=== PATIENT | female | born 1970 | race Caucasian/White ===

== ENCOUNTER 2019-12-15 11:47 | Outpatient (CLI) | payer OTHER, SELFPAY ==
--- NOTE | 2019-12-15 | ECG_ITS ---
Measurements Intervals [place] Rate: 88 P: 46 FL: 176 QRS: 46 QRSD: 87 T: 48 QT: 372 QTc: 451 Interpretive Statements SINUS RHYTHM WITH SINUS ARRHYTHMIA BORDERLINE ST ABNORMALITY- INFERIOR LEADS BASELINE ARTIFACT- II, III, V2 BORDERLINE ECG Electronically Signed On 12-15-2019 14:21:48 CDT by Michael Zepeda D.O.
== END 2019-12-15 11:48 | disposition home or self-care (01) ==
LOC: ANHCARD 11:59
PROVIDERS: PCP Internal Medicine
DX: Q66.42 Congenital talipes calcaneovalgus, left foot (principal)
CPT/HCPCS: 93005

== ENCOUNTER 2020-02-19 13:45 | Outpatient (CLI) | payer OTHER, SELFPAY ==
--- NOTE | ~2020-02-19 | MM_ITS ---
EXAMINATION: MM screening raquel BI w raj HISTORY: Screening mammogram, family history of breast cancer in her mother. TECHNIQUE: Craniocaudal and mediolateral oblique 3-D tomosynthesis images were obtained and synthetic 2-D images were generated. CAD analysis was submitted and interpreted. COMPARISON: 02/15/2018, 09/21/2016, 02/03/2015 BREAST PARENCHYMAL COMPOSITION: The breasts are almost entirely fatty. FINDINGS: There is no evidence of suspicious mass, calcification, or architectural distortion to sugg est malignancy in either breast. There has been no suspicious interval change. IMPRESSION: 1. No mammographic evidence of malignancy. 2. Recommend routine screening mammography in one year. BI-RADS Category 1: Negative Reviewed, dictated and finalized at location A. CODER
== END 2020-02-19 13:46 | disposition home or self-care (01) ==
LOC: ANHIMG 13:47
PROVIDERS: PCP Internal Medicine; Visit Provider Internal Medicine
DX: Z12.31 Encounter for screening mammogram for malignant neoplasm of breast (principal)
CPT/HCPCS: 77063; 77067

== ENCOUNTER 2020-10-14 13:58 | Outpatient (RCR) | payer OTHER, SELFPAY | END 2020-10-14 13:59 | disposition home or self-care (01) | LOC: ANHDMC 13:58 | PROVIDERS: PCP Internal Medicine; Visit Provider Internal Medicine | DX: E11.9 Type 2 diabetes mellitus without complications (principal) | CPT/HCPCS: 99199 ==

== ENCOUNTER 2020-10-14 14:00 | Outpatient (RCR) | payer OTHER, SELFPAY | END 2020-10-14 14:02 | disposition home or self-care (01) | LOC: ANHDMC 14:00 | PROVIDERS: PCP Internal Medicine; Visit Provider Internal Medicine | DX: E11.9 Type 2 diabetes mellitus without complications (principal) | CPT/HCPCS: 99199 ==

== ENCOUNTER 2020-12-11 11:00 | Outpatient (RCR) | payer OTHER, SELFPAY ==
[2020-12-11 11:09] VITALS: BMI 31.4
[2020-12-11 11:15] VITALS: BMI 31.4
== END 2021-02-17 15:37 | disposition home or self-care (01) ==
LOC: ANHDMC 11:00
PROVIDERS: PCP Internal Medicine; Visit Provider Internal Medicine
DX: E11.9 Type 2 diabetes mellitus without complications (principal); Z71.89 Other specified counseling; Z71.3 Dietary counseling and surveillance
CPT/HCPCS: 97802; G0108

== ENCOUNTER 2021-03-18 15:16 | Outpatient (CLI) | payer OTHER, SELFPAY ==
--- NOTE | ~2021-03-18 | MM_ITS ---
EXAMINATION: MM screening raquel BI w raj HISTORY: Screening mammogram TECHNIQUE: Craniocaudal and mediolateral oblique 3-D tomosynthesis images were obtained and synthetic 2-D images were generated. CAD analysis was submitted and interpreted. COMPARISON: 02/19/2020, 02/15/2018, 09/02/2016 bilateral screening mammogram examinations BREAST PARENCHYMAL COMPOSITION: There are scattered areas of fibroglandular density. FINDINGS: There is a biopsy marker on the left; history of prior benign left breast biopsy. There is an approximately 4 millimeter suspicious irregular soft tissue mass with granular microcalci fications in the inner mid left breast. Diagnostic left mammogram and left breast ultrasound examinat ion are recommended. Otherwise there is no evidence of suspicious mass, calcification, or architectural distortion to sugg est malignancy in either breast. There has been no other suspicious interval change. IMPRESSION: 1. No mammographic evidence of malignancy. 2. Recommend routine screening mammography in one year. BI-RADS Category 0: Incomplete: Needs additional imaging evaluation. Reviewed, dictated and finalized at location A. MANAGER
== END 2021-03-18 15:17 | disposition home or self-care (01) ==
LOC: ANHIMG 15:20
PROVIDERS: PCP Internal Medicine; Visit Provider Obstetrics & Gynecology
DX: Z12.31 Encounter for screening mammogram for malignant neoplasm of breast (principal); R92.8 Other abnormal and inconclusive findings on diagnostic imaging of breast
CPT/HCPCS: 77063; 77067

== ENCOUNTER 2021-03-30 13:30 | Outpatient (CLI) | payer OTHER, SELFPAY ==
--- NOTE | ~2021-03-30 | MMUS_ITS ---
EXAMINATION: MM diagnostic mammo unilat LT, US breast LT limited HISTORY: Follow-up left breast mass with calcifications TECHNIQUE: Additional 3-D tomosynthesis images of the left breast were performed and synthetic 2-D im ages were generated. CAD analysis was submitted and interpreted. High resolution Limited left breast ultrasound was performed. COMPARISON: 03/18/2021 BREAST PARENCHYMAL COMPOSITION: Breast composed of scattered areas of fibroglandular density FINDINGS: MAMMOGRAPHIC FINDINGS: There is poorly circumscribed mass measuring 4 mm in the upper inner quadrant of the left breast whic h contains amorphous calcifications. ULTRASOUND: Limited left breast ultrasound: Normal heterogeneous echotexture without focal solid or cystic mass. IMPRESSION: 1. Irregular shaped 4 mm left breast mass in the upper inner quadrant containing amorphous calcificat ions. No sonographic correlate. 2. Stereotactic left breast biopsy recommended. BI-RADS category 4, suspicious findings. Reviewed, dictated and finalized at location A. FOLIO LEAD IMPRESSION: 1. Irregular shaped 4 mm left breast mass in the upper inner quadrant containin g amorphous calcifications. No sonographic correlate. 2. Stereotactic left breast biopsy recommended. BI-RADS category 4, suspicious findings.
== END 2021-03-30 13:31 | disposition home or self-care (01) ==
LOC: ANHIMG 13:31
PROVIDERS: PCP Internal Medicine; Visit Provider Internal Medicine
DX: R92.8 Other abnormal and inconclusive findings on diagnostic imaging of breast (principal)
CPT/HCPCS: 76642; 77065

== ENCOUNTER 2021-04-02 10:30 | Outpatient (CLI) | payer OTHER, SELFPAY ==
--- NOTE | ~2021-04-02 | MM_ITS ---
MM stereotactic bx LT, MM post biopsy diagnostic LT, MM stereotactic specimen LT EXAMINATION: US GUID ED NEEDLE BIOPSY WITH VACUUM ASSISTANCE DATE: 04/02/2021 12:10 [employer]ETLANDS CONSERVATION LABORER INDICATION: Left breast mass with calcifications demonstrated on prior examination. Ultrasound-guide d core biopsy is requested to evaluate for malignancy. TECHNIQUE AND FINDINGS: The risks and potential benefits of the procedure were discussed with the patient, and written inform ed consent was obtained. After sterile preparation of the left breast, 1% lidocaine was utilized for local anesthesia. 1% lidocaine with epinephrine was used for deep anesthesia. A 10G vacuum-assisted biopsy gun needle was advanced through to the outer edge of the region of inter est from a superior medial approach utilizing sonographic guidance. A total of 6 tissue core samples were obtained through the lesion. An Inrad tissue marker clip was then placed at the biopsy site. H emostasis was achieved. The patient tolerated procedure well and there was no evidence of immediate complication. The patien t was given verbal instructions partly is from the department. Left breast mammograms to document ti ssue marker clip placement. The tissue samples were submitted to surgical pathology for histologic an alysis. IMPRESSION: 1. Successful ultrasound-guided vacuum-assisted biopsy of left breast mass with tissue marker placem ent. Please refer to pathology report for histologic analysis. Reviewed, dictated and finalized at location A. ANDS CONSERVATION LABORER IMPRESSION: 1. Successful ultrasound-guided vacuum-assisted biopsy of left breast mass wit h tissue marker placement. Please refer to pathology report for histologic anal ysis. IMPRESSION: 1. Successful ultrasound-guided vacuum-assisted biopsy of left breast mass wit h tissue marker placement. Please refer to pathology report for histologic anal ysis.
== END 2021-04-02 10:31 | disposition home or self-care (01) ==
PROVIDERS: PCP Internal Medicine; Visit Provider Internal Medicine
DX: R92.1 Mammographic calcification found on diagnostic imaging of breast (principal); N63.22 Unspecified lump in the left breast, upper inner quadrant
CPT/HCPCS: 19081; 77065; 88305; A4648

== ENCOUNTER → 2022-03-04 09:40 | Outpatient (CLI) | payer OTHER, SELFPAY ==
--- NOTE | ~2022-03-04 | US_ITS ---
US abdomen limited INDICATION: Generalized abdominal pain PROCEDURE: Realtime right upper abdominal ultrasound. COMPARISON: No prior studies for comparison. FINDINGS: The pancreas is normal without focal mass or pancreatic ductal dilation. Liver echotexture is increased, consistent with fatty infiltration. There is normal directional flow in the portal ve in. There are gallstones. Common bile duct measures 4 mm. No sonographic Melendez's sign. IMPRESSION: 1: Cholelithiasis. 2: Hepatic steatosis. Reviewed, dictated and finalized at location A. NISTRATIVE AIDE
== END ==
PROVIDERS: PCP Internal Medicine; Visit Provider Internal Medicine
DX: K80.20 Calculus of gallbladder without cholecystitis without obstruction (principal); K76.0 Fatty (change of) liver, not elsewhere classified
CPT/HCPCS: 76705

== ENCOUNTER 2022-04-02 13:37 | Outpatient (CLI) | payer OTHER, SELFPAY ==
--- NOTE | 2022-04-02 | ECHO_ITS ---
Patient Info Name: Ly Anna Age: 51 years : 1970 Gender: Female Ht: 67 in Wt: 182 lbs BSA: 2.00 m2 HR: 84 bpm BP: 109 / 84 mmHg Technical Quality: Good Exam Date: 04/02/2022 1:47 PM Exam Location: [facility] Patient Status: Outpatient Admit Date: 04/02/2022 Staff Ordering Physician: UNKNOWN, DOCTOR Trousseau Consultant: Anne Willoughby RDCS Attending Provider: UNKNOWN, DOCTOR Exam Type: CA echo doppler color flow Study Info Indications R07.9 - Chest pain, unspecified Complete two-dimensional, color flow and Doppler transthoracic echocardiogram is performed. Summary 1. Complete two-dimensional, color flow and Doppler transthoracic echocardiogram is performed. 2. Subcostal images not performed due to recent cholecystectomy. 3. Left ventricular chamber dimension is normal. 4. Ventricular septum is sigmoid shaped. No LVOT obstruction. 5. Left ventricular systolic function is normal, estimated at 60-65%. 6. The left ventricular diastolic function is grade I diastolic dysfunction. 7. E/e' 9 is minimally elevated. 8. Global longitudinal strain is abnormal at -12.5%. Left Ventricle E/e' 9 is minimally elevated. Global longitudinal strain is abnormal at -12.5%. Subcostal images not performed due to recent cholecystectomy. Ventricular septum is sigmoid shaped. No LVOT obstruction. Left ventricular chamber dimension is normal. Left ventricular systolic function is normal, estimated at 60-65%. The left ventricular diastolic function is grade I diastolic dysfunction. Right Ventricle Right ventricular chamber dimension is normal. Right ventricular systolic function is normal. Left Atria Left atrial chamber dimension is normal. Right Atria Right atrial chamber dimension is normal. Aortic Valve The aortic valve is trileaflet. There is no aortic valve stenosis. There is no aortic valve regurgitation. Pulmonic Valve There is no pulmonic regurgitation. Mitral Valve There is no mitral valve stenosis. There is no mitral valve regurgitation. Tricuspid Valve There is no tricuspid valve regurgitation. Pericardium/Pleural There is no pericardial effusion. Inferior Vena Cava Inferior vena cava is not well visualized. Aorta The aortic root size at the sinus of Valsalva is normal. Left Ventricular Outflow Tract Name Value Normal LVOT 2D LVOT Diameter 1.9 cm LVOT Doppler LVOT Peak Gradient 4 mmHg LVOT Mean Gradient 2 mmHg LVOT VTI 17 cm LVOT VTI/AV VTI Ratio 0.9 LVOT Stroke Volume 46 ml LVOT CO 3.9 l/min LVOT CI 1.9 l/min/m2 Pulmonic Valve Name Value Normal RVOT Doppler RVOT Peak Gradient 2 mmHg
== END 2022-04-02 13:38 | disposition home or self-care (01) ==
LOC: ANHCARD 13:39
PROVIDERS: PCP Internal Medicine
DX: R07.9 Chest pain, unspecified (principal)
CPT/HCPCS: 93306

== ENCOUNTER 2022-05-27 14:39 | Outpatient (CLI) | payer OTHER, SELFPAY ==
--- NOTE | ~2022-05-27 | MM_ITS ---
EXAMINATION: MM screening raquel BI w raj HISTORY: Screening mammogram TECHNIQUE: Craniocaudal and mediolateral oblique 3-D tomosynthesis images were obtained and synthetic 2-D images were generated. CAD analysis was submitted and interpreted. COMPARISON: 03/30/2021 diagnostic left mammogram and limited left breast ultrasound examination BREAST PARENCHYMAL COMPOSITION: There are scattered areas of fibroglandular density. FINDINGS: There are 2 biopsy markers on the left; history of 2 prior benign left breast biopsies. The re is no evidence of suspicious mass, calcification, or architectural distortion to suggest malignanc y in either breast. There has been no suspicious interval change. IMPRESSION: 1. No mammographic evidence of malignancy. 2. Recommend routine screening mammography in one year. BI-RADS Category 1: Negative Reviewed, dictated and finalized at location A. TENANCE PORTER
== END 2022-05-27 14:40 | disposition home or self-care (01) ==
LOC: ANHIMG 14:40
PROVIDERS: PCP Internal Medicine; Visit Provider Internal Medicine
DX: Z12.31 Encounter for screening mammogram for malignant neoplasm of breast (principal)
CPT/HCPCS: 77063; 77067

== ENCOUNTER 2022-10-01 12:07 | Outpatient (CLI) | payer OTHER, SELFPAY ==
--- NOTE | ~2022-10-01 | XR_ITS ---
EXAM: XR lumbar spine 2-3V DATE: 10/01/2022 12:34 HISTORY: chronic Low back pain . COMPARISON: None available. FINDINGS: Moderate lumbar scoliosis. 5 nonrib-bearing lumbar-type vertebral bodies. Pedicles intact. Normal vertebral body alignment. Vertebral body heights preserved. Mild disc space narrowing at L2-3 through L4-5. Facet sclerosis and hypertrophy, mild at L4-5 and moderate at L5-S1. No fracture or dis location. Mild bilateral hip osteoarthritis. IMPRESSION: Lumbar scoliosis. Mild multilevel degenerative disc disease. Mild lower lumbar facet arth ropathy. Reviewed, dictated and finalized at location K. IMPRESSION: Lumbar scoliosis. Mild multilevel degenerative disc disease. Mild l ower lumbar facet arthropathy.
--- NOTE | ~2022-10-01 | XR_ITS ---
EXAM: XR hip RT min 2V DATE: 10/01/2022 12:34 HISTORY: RIGHT HIP PAIN . COMPARISON: None available. FINDINGS: Normal mineralization. No fracture or dislocation. No lytic or blastic lesion. Mild degene rative change at the right hip joint. No erosion or periosteal change. Soft tissues within normal may its. IMPRESSION: Mild right hip osteoarthritis. Reviewed, dictated and finalized at location K.
== END 2022-10-01 12:08 ==
PROVIDERS: PCP Chiropractor; Visit Provider Chiropractor
DX: M16.11 Unilateral primary osteoarthritis, right hip (principal); M41.86 Other forms of scoliosis, lumbar region; M51.36 Other intervertebral disc degeneration, lumbar region
CPT/HCPCS: 72100; 73502

== ENCOUNTER → 2023-03-02 10:43 | Outpatient (CLI) | payer OTHER, SELFPAY ==
--- NOTE | ~2023-03-02 | XR_ITS ---
Right ankle Technique: AP, oblique, and lateral views were obtained. Clinical History: Pain Findings: No acute fracture or dislocation is seen. Patient is status post orthopedic surgery at the distal tibiofibular syndesmosis region. There are also 2 orthopedic screws within the calcaneus. Osse ous alignment is anatomic. Ankle mortise and other visualized joint spaces are preserved. Soft tissu es are otherwise unremarkable. Impression: No acute abnormality. Postoperative changes at the distal tibiofibular syndesmosis and calcaneus. Reviewed, dictated and finalized at location M. MIGRATION CONSULTANT Impression: No acute abnormality. Postoperative changes at the distal tibiofibular syndesmosis and calcaneus.
--- NOTE | ~2023-03-02 | XR_ITS ---
Lumbosacral Spine: AP and lateral views Clinical History: Pain Findings: There is levoscoliosis of the lumbar spine, essentially unchanged. No fracture or subluxati on seen otherwise. The intervertebral disc spaces are preserved. There is moderate facet arthropathy from L4 through S1. The sacroiliac joints are normally outlined. Impression: Levoscoliosis and lower lumbar spine facet arthropathy, as detailed above. Reviewed, dictated and finalized at location M. BALL WINDER Impression: Levoscoliosis and lower lumbar spine facet arthropathy, as detailed above.
--- NOTE | ~2023-03-02 | XR_ITS ---
Left ankle Technique: AP, oblique, and lateral views were obtained. Clinical History: Pain Findings: No acute fracture or dislocation is seen. Osseous alignment is anatomic. Ankle mortise and other visualized joint spaces are preserved. Soft tissues are otherwise unremarkable. Impression: Unremarkable left ankle. Reviewed, dictated and finalized at location . IAGE FEEDER Impression: Unremarkable left ankle.
--- NOTE | ~2023-03-02 | XR_ITS ---
EXAM: XR tibia fibula RT 2V DATE: 03/02/2023 14:23 HISTORY: PAIN . COMPARISON: None available. FINDINGS: Normal mineralization. Surgical fixation of the syndesmosis. Select joint are maintained d egenerative changes in the right knee and right ankle. Partially visualized cannulated screws in the calcaneus. Healed posterior malleolar fracture. No acute fracture or dislocation. No lytic or blastic lesion. Joint spaces are maintained. No erosion or periosteal change. Soft tissues within normal may its. IMPRESSION: No acute osseous finding in the right tibia/fibula. Reviewed, dictated and finalized at location K. PAINTER
--- NOTE | ~2023-03-02 | XR_ITS ---
Right foot Technique: AP, oblique, and lateral views were obtained. Clinical History: Pain Findings: No acute fracture or dislocation is seen. 2 orthopedic screws are present in the calcaneus. Osseous alignment is anatomic. Joint spaces are preserved without erosive or degenerative change. So ft tissues are unremarkable. Impression: No acute abnormality. 2 orthopedic screws in the calcaneus. Reviewed, dictated and finalized at location . AULICS TEACHER Impression: No acute abnormality. 2 orthopedic screws in the calcaneus.
--- NOTE | ~2023-03-02 | XR_ITS ---
EXAM: XR femur RT min 2V DATE: 03/02/2023 14:23 HISTORY: PAIN . COMPARISON: None available. FINDINGS: Normal mineralization. No fracture or dislocation. No lytic or blastic lesion. Mild degene rative changes in the right hip and right knee. No erosion or periosteal change. Soft tissues within normal limits. IMPRESSION: Unremarkable right femur radiograph findings. Reviewed, dictated and finalized at location K. SION SCIENCE ANALYST
--- NOTE | ~2023-03-02 | XR_ITS ---
Left foot Technique: AP, oblique, and lateral views were obtained. Clinical History: Pain Findings: No acute fracture or dislocation is seen. Osseous alignment is anatomic. Joint spaces are p reserved without erosive or degenerative change. Soft tissues are unremarkable. Impression: Unremarkable left foot radiographs. Reviewed, dictated and finalized at location . WOMEN SERVICES Impression: Unremarkable left foot radiographs.
--- NOTE | ~2023-03-02 | XR_ITS ---
Thoracic spine: Clinical Indication: Back pain AP and lateral views were performed. No fracture is seen. There is normal alignment of the vertebrae. The intervertebral disc spaces appe ar normal. Paravertebral soft tissues appear normal. Impression: No significant abnormalities noted. Reviewed, dictated and finalized at [facility]. MENT REVIEW SPECIALIST Impression: No significant abnormalities noted.
== END ==
PROVIDERS: PCP Internal Medicine; Visit Provider Pain Medicine Interventional Pain Medicine
DX: M47.25 Other spondylosis with radiculopathy, thoracolumbar region (principal); M47.26 Other spondylosis with radiculopathy, lumbar region; M47.27 Other spondylosis with radiculopathy, lumbosacral region; M47.24 Other spondylosis with radiculopathy, thoracic region; M79.673 Pain in unspecified foot
CPT/HCPCS: 72072; 72100; 73552; 73590; 73610; 73630

== ENCOUNTER 2024-02-16 14:07 | Outpatient (CLI) | payer MEDICARE, SELFPAY ==
--- NOTE | ~2024-02-16 | MM_ITS ---
EXAMINATION: MM screening raquel BI w raj HISTORY: Screening mammogram, family history of breast cancer in her mother. TECHNIQUE: Craniocaudal and mediolateral oblique 3-D tomosynthesis images were obtained and synthetic 2-D images were generated. CAD analysis was submitted and interpreted. COMPARISON: 05/27/2022, 03/18/2021, 02/19/2020 BREAST PARENCHYMAL COMPOSITION:Not Dense. The breasts are almost entirely fatty FINDINGS: No suspicious mass, calcification, or architectural distortion are identified in either mario ast to suggest malignancy. There has been no suspicious interval change. IMPRESSION: No mammographic evidence of malignancy. Recommend routine screening mammography in one year. BI-RADS Category 1: Negative Reviewed, dictated and finalized at location . LINES MANAGER
== END 2024-02-16 14:08 | disposition home or self-care (01) ==
PROVIDERS: PCP Internal Medicine; Visit Provider Internal Medicine
DX: Z12.31 Encounter for screening mammogram for malignant neoplasm of breast (principal)
CPT/HCPCS: 77063; 77067

== ENCOUNTER 2024-07-18 00:14 | Day surgery (SDC) | payer MEDICARE, SELFPAY ==
[2024-07-09 14:27] VITALS: BMI 31.6
--- OUTSIDE RECORDS SUMMARY | 2024-07-18 00:17 | XMS_ITS | Clinical Summary ---
Author Organization [facility] Address [address] [place] [place] [address] Care Team Providers Care Meat Press Operator Name Role Phone Unavailable Primary Care Provider Unavailabl e Source Comments [facility],non-owned Affiliates and Associated Physician Practices is amultiple site organization consisting of ambulatory clinics and hospital sitesin [place], [place], [place] and [place]. This disclosure is being madepursuant to the Care Everywhere program and may not contain all information available regarding this patient. Last updated 17.[facility] Allergies Active Allergy Reactions Criticality Noted Date Comments Hydromorphone Nausea and/or Vomiting 02/05/2021 Medications * Be aware that medications may not be up to date on this document. Alwaysverify current medications with the patient. lisinopril (PRINIVIL; ZESTRIL) 10 MG tablet Take 1 (one) tablet by mouth once daily Active Loratadine-Pse udoephedrine (PX ALLERGY RELIEF D, LORATID, PO) Active Methylcobalami n (A28-VRIINQ PO) Active escitalopram (LEXAPRO) 20 MG tablet Take 1 (one) tablet by mouth once daily Active omeprazole (PRILOSEC) 20 MG capsule Take 1 (one) capsule by mouth daily before breakfast Active metFORMIN (GLUCOPHAGE) 500 MG tablet Take 2 (two) tablets by mouth once daily Active atorvastatin (LIPITOR) 10 MG tablet Take 1 (one) tablet by mouth at bedtime Active ALBUTEROL SULFATE HFA IN Activ e semaglutide (OZEMPIC, 0.25 OR 0.5 MG/DOSE,) 2 MG/1.5ML pen Inject subcutaneously every 7 days Active meloxicam (MOBIC) 15 MG tablet Take 15 mg by mouth once daily Active nortriptyline (PAMELOR) 10 MG capsule Take 1 (one) capsule by mouth at bedtime Active oxyCODONE-acet aminophen (PERCOCET) 5-325 MG tablet Take 1 (one) tablet by mouth every 6 hours as needed for Pain 28 tablet Active Additional Information Patient not taking.Reported on 07/28/2022 ondansetron, disintegrating , (ZOFRAN ODT) 4 MG tablet Take 1 (one) tablet by mouth every 6 hours as needed for Nausea/Vomiting Allow tablet to dissolve on the tongue 30 tablet Active Additional Information Patient not taking.Reported on 07/28/2022 buPROPion XL 24hr (Wellbutrin-XL ) 150 MG tablet Take 1 (one) tablet by mouth once daily Active traMADol (Ultram) 50 MG tablet Take 1 (one) tablet by mouth every 6 hours as needed for Pain Active Active Problems Problem Noted Date Diagnosed Date Right foot pain 07/29/2022 Social History Tobacco Use Types Packs/Day Years Used Date Smoking Tobacco: Never Smokeless Tobacco: Never Alcohol Use Standard Drinks/Week Comments Yes 0 (1 standard drink = 0.6 oz pur e alcohol) occasionally Comments No Sex and Gender Information Value Date Recorded Sex Assigned at Female 02/08/2021 7:28 PM LONG DISTANCE BILLING OPERATOR Legal Sex Female 2:50 PM CDT Gender Identity Female 02/08/2021 7:28 PM LONG DISTANCE BILLING OPERATOR Sexual Orientation Straight 02/08/2021 7: 28 PM LONG DISTANCE BILLING OPERATOR Last Filed Vital Signs Vital Sign Reading Time Taken Comments Blood Pressure 118/96 07/29/2022 1:50 PM CDT Pulse 65 07/29/2022 1:50 PM CDT Temperature 36.6 C (97.8 F) 07/29/2022 1:15 PM CDT Respiratory Rate 15 07/29/2022 1:50 PM CDT Oxygen Saturation 97% 07/29/2022 1:50 PM CDT Inhaled Oxygen Concentration - - Weight 85.3 kg (188 lb) 07/29/2022 8:00 AM CDT Height 170.2 cm (5' 7 ) 07/29/2022 8:00 AM CDT Body Mass Index 29.44 07/29/2022 8:00 AM CDT Plan of Treatment Health Maintenance Due Date Last Done Comments COLON MONITORING 1970 COLONOSCOPY - COLON CA SCREENING 1970 CT COLONOGRAPHY - COLON CA SCREENING 1970 FIT - COLON CA SCREENING 1970 FLEX SIG - COLON CA SCREENING 1970 MAMMOGRAM 1970 PAP SMEAR 1970 HIV SCREENING 1984 HEPATITIS C SCREENING 06/07/1987 DTAP/TDAP/TD VACCINES (1 - Tdap) 1988 HEPATITIS B VACCINE (1 of 3 - 19+ 3-dose series) 1988 PNEUMOCOCCAL VACCINE 50+ (1 of 1 - PCV) 06/12/2019 ZOSTER VACCINE (1 of 2) 06/12/2019 COLOGUARD (AGES 45-75) - COL ON CA SCREENING 03/25/2023 03/25/2020 Colorectal Cancer Screening 03/25/2023 COVID-19 VACCINE (1 - 2023-2 5 season) 2023 DEPRESSION SCREENING 04/04/2024 INFLUENZA VACCINE (Season Ended) 2024 02/06/20 20 HIB VACCINE Aged Out No longer eligi ble based on patient's age to complete this topic HPV VACCINE Aged Out No longer eligi ble based on patient's age to complete this topic MENINGOCOCCAL (Group B) VACC INE SHARED DECISION-MAKING Aged Out No longer eligibl e based on patient's age to complete this topic MENINGOCOCCAL GROUPS A/C/Y/W VACCINE Aged Out No longer eligible b ased on patient's age to complete this topic PNEUMOCOCCAL VACCINE Aged Out No long er eligible based on patient's age to complete this topic Medical Devices Explanted Type Area Fleet Dispatch Manager Device Identifier Shelf Expiration Date Model / Serial / Lot Screw 2.4mm 12mm T8 Ft Kathryn Slf-Tap Implanted:Qty: 1 on 02/05/2021 by Valeriy Gracia DPM at [facility] [place] Explanted:Qty: 1 on 07/29/2022 by Valeriy Gracia DPM at [facility] Right: Foot [employer] AR-8724-12 / / Screw 2.4mm 12mm Slf-Tap Lck Va Ti Acpt Implanted:Qty: 1 on 02/05/2021 by Valeriy Gracia DPM at [facility] [place] Explanted:Qty: 1 on 07/29/2022 by Valeriy Gracia DPM at [facility] [place] Right: Foot [employer] AR-8724V-12 / / Screw 2.4mm 12mm Slf-Tap Lck Va Ti Acpt Implanted:Qty: 2 on 02/05/2021 by Valeriy Gracia DPM at [facility] [place] Explanted:Qty: 2 on 07/29/2022 by Valeriy Gracia DPM at [facility] [place] Right: Foot [employer] AR-8724V-12 / / Screw 2.4mm 16mm Slf-Tap Lck Va Sld Implanted:Qty: 1 on 02/05/2021 by Valeriy Gracia DPM at [facility] [place] Explanted:Qty: 1 on 07/29/2022 by Valeriy Gracia DPM at [facility] [place] Right: Foot [employer] AR-8724V-16 / / Screw 2.4mm 14mm Slf-Tap Lck Va Sld Implanted:Qty: 2 on 02/05/2021 by Valeriy Gracia DPM at [facility] [place] Explanted:Qty: 2 on 07/29/2022 by Valeriy Gracia DPM at [facility] [place] Right: Foot [employer] [id number]-8724V-[id number] / / Plate Implanted:Qty: 1 on 02/05/2021 by Valeriy Gracia DPM at [facility] [place] Explanted:Qty: 1 on 07/29/2022 by Valeriy Gracia DPM at [facility] [place] Right: Foot [employer] [id number] / / Insurance [facility]
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
--- OUTSIDE RECORDS SUMMARY | 2024-07-18 00:17 | XMS_ITS | Clinical Summary ---
Author Organization [facility] Address [address] [place] [address] Phone Care Team Providers Care Helicopter Engineer Name Role Phone Amador Mackey MD Primary Care Provider [phone] Allergies Active Allergy Reactions Criticality Noted Date Comments Hydromorphone Hcl Nausea,Vomiting High 10/10/2017 Medications lisinopril (PRINIVIL, ZESTRIL) 20 MG Tablet Take 10 mg by mouth daily. Active Cholecalciferol (VITAMIN D3) 1000 UNIT Tablet Take 1 Tab by mouth daily. Active ascorbic acid (ASCORBIC ACID) 500 MG Tablet Take 500 mg by mouth daily. Active cetirizine (ZYRTEC) 10 MG Tablet Take 10 mg by mouth nightly as needed. Active oxyCODONE-aceta minophen (PERCOCET) 5-325 MG Tablet Take 1 Tab by mouth every 6 hours as needed for Severe pain. 30 Tab 8 Active albuterol 108 (90 Base) MCG/ACT Aerosol Solution take 1 Puff by inhalation 3 times daily as needed. Active atorvastatin (LIPITOR) 10 MG Tablet Take 1 Tablet by mouth daily. Active Benzonatate 200 MG Capsule Take 200 mg by mouth 3 times daily as needed. 2 Active escitalopram (LEXAPRO) 20 MG Tablet Take 10 mg by mouth daily. 1 Active Loratadine 10 MG Capsule Take 1 Tablet by mouth daily as needed. Active metFORMIN (GLUCOPHAGE) 500 MG Tablet Take 500 mg by mouth 2 times daily. Active omeprazole (PriLOSEC) 20 MG CAPSULE DELAYED RELEASE Take 20 mg by mouth daily. Active Semaglutide,0.2 5 or 0.5MG/DOS, (Ozempic, 0.25 or 0.5 MG/DOSE,) 2 MG/1.5ML Solution Pen-injector 2 mg by Subcutaneous route once a week. Active Active Problems Problem Noted Date Diagnosed Date Right foot pain 10/12/2017 Hypertension 10/12/2017 Family History Medical History Relation Name Comments Cancer Father Diabetes Father Hypertension Father Arthritis Mother Breast Cancer Mother Relation Name Status Comments Father Mother Alive Social History Tobacco Use Types Packs/Day Years Used Date Smoking Tobacco: Never Smokeless Tobacco: Never Alcohol Use Standard Drinks/Week Comments Yes 0 (1 standard drink = 0.6 oz pur e alcohol) social Comments Unknown Sex and Gender Information Value Date Recorded Sex Assigned at Not on file Legal Sex Female 8:46 PM CDT Gender Identity Not on file Sexual Orientation Not on file Last Filed Vital Signs Vital Sign Reading Time Taken Comments Blood Pressure 127/87 03/22/2022 10:06 AM SUBSTANCE ABUSE THERAPIST Pulse 117 03/22/2022 10:06 AM SUBSTANCE ABUSE THERAPIST Temperature 36 C (96.8 F) 10/12/2017 11:45 AM CDT Respiratory Rate 16 10/12/2017 11:45 AM CDT Oxygen Saturation 97% 10/12/2017 11:45 AM CDT Inhaled Oxygen Concentration - - Weight 84.8 kg (187 lb) 03/22/2022 9:49 AM SUBSTANCE ABUSE THERAPIST Height 170.2 cm (5' 7 ) 03/22/2022 9:49 AM SUBSTANCE ABUSE THERAPIST Body Mass Index 29.29 03/22/2022 9:49 AM SUBSTANCE ABUSE THERAPIST Plan of Treatment Health Maintenance Due Date Last Done Comments Hepatitis C Virus (HCV) Screening 1969 Mammogram 1969 Hepatitis B Immunization (1 of 3 - 19+ 3-dose series) 1988 Colonoscopy 2014 Colorectal Cancer Screening 2014 Cologuard 06/12/2019 Immunochemical Fecal Occult Blood 06/12/2019 Pneumococcal Immunization (50+ years) (1 of 1 - PCV) 06/12/2019 Zoster Immunization (2 of 2) 06/07/2020 04/12/2020 Influenza Immunization (#1) 12/04/202302/02, 02/24/2021, 02/06/2020, Additional history exists SARS-COV-2 Immunization (2023- season) 2023 Respiratory Syncytial Virus (RSV) Immunization (Adult) (1 - 1-dose 75+ series) 2044 DTaP/Tdap/Td Immunization Discontinued 08/14/2015, 03/2016 TdaP Immunization Completed 08/14/2015 Meningococcal Immunization (ACWY) Aged Out No longer eligible based on patient's age to complete this topic Rotavirus Immunization Aged Out No lo nger eligible based on patient's age to complete this topic Insurance [address] [address] Care Teams Helicopter Engineer Relationship Specialty Start Date End Date Amador Mackey MD [address] [place] [id number] PCP - General Internal Medicine 10/10/17
--- OUTSIDE RECORDS SUMMARY | 2024-07-18 00:17 | XMS_ITS | Clinical Summary ---
Author Organization [facility] Medical Office Building [address] Address [address] [place] [address] Care Team Providers Care Building Inspector Name Role Phone Amador Mackey MD Primary Care Provider [phone] Roger Gracia DPM Unavailable [phone] Allergies Active Allergy Reactions Criticality Noted [...] 4 (four) times a day Active camphor-menthoL (Valier [place]) ointment Apply topically PT TAKING NEEDED Active [...] (03/17/2022): Added automatically from request for surgery [id number] Obesity 03/17/2022 Iliotibial band syndrome of right [...] 10/12/2017 Urinary incontinence 2016 Chest pain 07/15/2011 Surgical History Surgery Date Site/Laterality Comments TONSILLECTOMY TUBAL LIGATION HYSTERECTOMY partial FOOT SURGERY Right x4 CYST REMOVAL under armpit REFRACTIVE SURGERY BREAST SURGERY biopsy x2 Medical History Medical History Date Comments Hypertension PONV (postoperative nausea and vomiting) GERD (gastroesophageal reflux disease) Type 2 diabetes mellitus (HCC) Anxiety Hyperlipidemia Family History Medical History Relation Name Comments Arthritis Other Cancer Other Heart disease Other Relation Name Status Comments Father Mother Other Social History Tobacco Use Types Packs/Day Years [...] on file Legal Sex Female 10:27 PM STEEL FITTER Gender Identity Not on file Sexual Orientation Not on file Obstetrics History Last Filed Vital Signs Vital Sign Reading Time Taken Comments Blood Pressure 138/106 07/01/2022 10:57 AM CDT Pulse 83 07/01/2022 10:57 AM CDT Temperature 36.3 C (97.3 F) 04/14/2022 1:01 PM STEEL FITTER Respiratory Rate 16 07/01/2022 10:57 AM CDT Oxygen Saturation 95% 04/14/2022 1:01 PM STEEL FITTER Inhaled Oxygen Concentration - - Weight 86.6 kg (191 lb) 07/01/2022 10:57 AM CDT Height 170.2 cm (5' 7 ) 07/01/2022 10:57 AM CDT Body Mass Index 29.91 07/01/2022 10:57 AM CDT Plan of Treatment Health Maintenance Due Date Last Done Comments Albumin Creatinine Ratio, Urine 1969 Breast Cancer Screening-Mammogram 1969 Colon Cancer Screening-Colonoscopy 1969 Depression Screening 1969 Hemoglobin A1C 1969 Hepatitis C Screening 1969 Dilated Eye Exam 1969 Foot Exam 1969 Hepatitis B Screening 06/12/1987 Regular Well Visit/Exam 18-64 06/12/1987 Pneumococcal vaccine <65 (1 of 2 - PCV) 1988 Zoster Vaccine (1 of 2) 06/12/2019 Lipid Panel 03/20/2023 03/20/2022 eGFR 03/20/2023 03/20/2022 Influenza Vaccine (Season Ended) 2024 02/15/2019, 12/15/2017, 12/13/2016, Additional history exists DTaP/Tdap/Td Vaccine (2 - Td or Tdap) 08/13/2025 08/14/2015, 08/14/2015 Medical Devices Implanted Type Area Medical Claims Specialist Device Identifier Shelf Expiration Date Model / Serial / Lot [employer] Hem-O-Rios Ligate Nonabsorbable Cartridge Medium Large Latex Free [id number] - [id number] Implanted:Qty: 1 on 03/25/2022 by Jose Alfredo West MD at [facility] N/A: Abdomen [employer] 12/21/2026 [id number] / / [id number] Description:6 clips Procedures Procedure Name Priority Date/Time Associated Diagnosis Comments BASIC METABOLIC PANEL Routine 03/20/2022 9:16 AM STEEL FITTER Hypertension, unspecified type LIPID PANEL Routine 03/20/2022 9:16 AM STEEL FITTER Hyperlipidemia, unspecified hyperlipidemia type from Last 3 Months or Most Recently Relevant to Health Maintenance Results * (ABNORMAL) Lipid panel (03/20/2022 9:16 AM STEEL FITTER) Cholesterol 174 <200 mg/dL [facility] [...] factors. LDL-C is now calculated using the Mark calculation, which is a validated novel method providing better accuracy than the Friedewald equation in the estimation of LDL-C. Rasta ANGELA et al. GRAZYNA. 2013;310(19): 3575-7010 (http://education.[employer]/faq/LAP140) Chol/HDL ratio 3.2 <5.0 (calc) [facility] Non-HDL, (LDL+VLDL) 120 <130 mg/dL (calc) [facility] Comment: For patients with diabetes plus 1 major ASCVD risk factor, treating to a non-HDL-C goal of <100 mg/dL (LDL-C of <70 mg/dL) is considered a therapeutic option. Blood 03/20/2022 9:16 AM STEEL FITTER 03/20/2022 9:17 AM STEEL FITTER Narrative [facility] - 03/23/2022 1:20 AM STEEL FITTER FASTING:YES AN UPDATE OR CORRECTION HAS BEEN MADE TO NAME FASTING: YES us Roger Frederick AIRFIELD OPERATIONS SPECIALIST LAB BLOOD ORDERABLES Final R esult [facility] [address] [place] [address] * (ABNORMAL) Basic metabolic panel (03/20/2022 9:16 AM STEEL FITTER) Pathologist [facility] Glucose 123(H) 65 - 99 mg/dL [facility] Comment: Fasting reference interval For someone without known diabetes, a glucose value between 100 and 125 mg/dL is consistent with prediabetes and should be confirmed with a follow-up test. BUN 13 7 - 25 mg/dL [facility] Creatinine 0.66 0.50 - 1.03 mg/dL [facility] eGFR 105 > OR = 60 mL/min/1. 73m2 [facility] Comment: The eGFR is based on the CKD-EPI 2020 equation. To calculate the new eGFR from a previous Creatinine or Cystatin C result, go to https://www.kidney.org/professionals/ kdoqi/gfr%5Fcalculator BUN/creat ratio NOT APPLICABLE 6 (calc) [facility] Sodium 137 135 - 146 mmol/L [facility] Potassium, pl 4.2 3.5 - 5.3 mmol/L [facility] Chloride 102 98 - 110 mmol/L [facility] CO2 28 20 - 32 mmol/L [facility] Calcium 9.4 8.6 - 10.4 mg/dL [facility] Blood 03/20/2022 9:16 AM STEEL FITTER 03/20/2022 9:17 AM STEEL FITTER Narrative [facility] - 03/23/2022 1:20 AM STEEL FITTER FASTING:YES AN UPDATE OR CORRECTION HAS BEEN MADE TO NAME FASTING: YES us Roger Frederick AIRFIELD OPERATIONS SPECIALIST LAB BLOOD ORDERABLES Final R esult [facility] [address] [place] [address] from Last 3 Months or Most Recently Relevant to Health Maintenance Insurance [facility] CHOICE PLUS [facility] CHOICE PLUS Care Teams Building Inspector Relationship Specialty Start Date End Date Amador Mackey MD [address] [place] [address] PCP - General Internal Medicine 03/14/19 Roger Gracia DPM [address] [place] [address] Referring Physician Foot and Ankle Surg 03/18/22
--- OUTSIDE RECORDS SUMMARY | 2024-07-18 00:17 | XMS_ITS | Encounter Summary ---
Author Organization [facility] Healthcare Address [address] [place] [address] Care Team Providers Care Fisher Name Role Phone Amador Mackey MD Primary Care Provider [phone] Roger Gracia DPM Unavailable [phone] Encounter Details Date Type Department Care Team (Late st Contact Info) Description 06/12/2020 Telephone [facility] [address] [facility] [address], 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
[2024-07-18 12:05] VITALS: BP 123/86; PULSE 93; RESP 18; TEMP 36.4; O2SAT 98; BMI 30.4
[2024-07-18 12:22] LABS: Glucose Point of Care 145 mg/dl (65-105)
[2024-07-18] MEDS: LACTATED RINGERS 1,000 ML 150 ML IV CONT (12:29)
--- NOTE | 2024-07-18 12:55 | P.PNAN_ITS ---
Anes - Initial Pre Proc Eval Procedure: Operation Date: 07/18/24 13:00 Proposed Procedures p Screening Colonoscopy - Corwin Sanford MD Date/Time: 07/18/24 12:55 Surgeon: Corwin Sanford MD Pre Op Diagnosis: Screening Patient Data Age: 54 Gender: F Height: 1.7 m Weight: 88 kg Last Vital Signs Temp 36.4 C 07/18/24 12:05 Pulse 93 07/18/24 12:05 Resp 18 07/18/24 12:05 BP 123/86 07/18/24 12:05 Pulse Ox 98 07/18/24 12:05 O2 Del Method Room Air 07/18/24 12:05 Allergies Allergy/AdvReac Type Severity Reaction Status Date / Time HYDROMORPHONE HCL Allergy Intermediate Vomiting Uncoded 07/09/24 14:22 MEPERIDINE HCL AdvReac Unknown VOMITIING Uncoded 04/15/21 13:13 Home Medications ?Medication ?Instructions ?Recorded ?Confirmed ?Type atorvastatin 40 mg tablet 40 mg PO DAILY 07/09/24 07/18/24 History escitalopram oxalate 10 mg tablet 10 mg PO DAILY 07/09/24 07/18/24 History gabapentin 300 mg capsule 300 mg PO TID 07/09/24 07/18/24 History glimepiride 4 mg tablet 4 mg PO DAILY 07/09/24 07/18/24 History lisinopril 20 mg tablet 20 mg PO DAILY 07/09/24 07/18/24 History metformin 500 mg tablet,extended 500 mg PO BID 07/09/24 07/18/24 History release 24 hr Laboratory Tests 07/18/24 12:15 POC Capillary Glucose 145 H mg/dl (65-105) Patient hx anesthesia problems: none Family hx anesthesia problems: none Results Review: All pre-operative results and documents have been reviewed as part of the pre- operative evaluation. [facility] Social History Social History Smoking status: Never smoker Alcohol intake: never Substance use: current Substance use type: marijuana Other substance usage details: a few times a month Living arrangements: with family Spiritual care concerns: No Anes - Eval Final PreProcedure Day of Procedure 07/18/24 12:55 Patient weight: obese Heart: regular rate and rhythm Lungs: clear to auscultation Airway: Mallampati scale class II Neurological: alert and oriented Last oral intake: >/= 8 hours ASA classification: III Emergent: no Anesthetic plan: proceed Anesthesia type and monitoring: general GIVS and standard monitoring Results Review: All pre-operative results and documents have been reviewed as part of the pre- operative evaluation. Informed Consent: The patient's anesthetic plan and its attendant risks and benefits were discussed with the patient/family/POA. Questions were solicited and answers provided to the satisfaction of the patient/family/POA.
--- NOTE | 2024-07-18 13:15 | PM.HPGS ---
History of Present Illness History of Present Illness Consent: Risks, benefits, and alternatives have been discussed and questions answered. Patient agrees to proceed with procedure. Chief complaint: Screening Narrative: Ly Anna is a 54 year old female here for first screening colonoscopy Review of Systems Review of Systems: All systems reviewed & are unremarkable except as noted in HPI and below PMFSH Past Medical History Medical History (Updated 07/18/24 @ 13:18 by Corwin Sanford MD) Colon cancer screening Social History Social History Smoking status: Never smoker Alcohol intake: never Substance use: current Substance use type: marijuana Other substance usage details: a few times a month Living arrangements: with family Spiritual care concerns: No Meds Home Medications and Allergies Home Medications ?Medication ?Instructions ?Recorded ?Confirmed ?Type atorvastatin 40 mg tablet 40 mg PO DAILY 07/09/24 07/18/24 History escitalopram oxalate 10 mg tablet 10 mg PO DAILY 07/09/24 07/18/24 History gabapentin 300 mg capsule 300 mg PO TID 07/09/24 07/18/24 History glimepiride 4 mg tablet 4 mg PO DAILY 07/09/24 07/18/24 History lisinopril 20 mg tablet 20 mg PO DAILY 07/09/24 07/18/24 History metformin 500 mg tablet,extended 500 mg PO BID 07/09/24 07/18/24 History release 24 hr Allergies Allergy/AdvReac Type Severity Reaction Status Date / Time HYDROMORPHONE HCL Allergy Intermediate Vomiting Uncoded 07/09/24 14:22 MEPERIDINE HCL AdvReac Unknown VOMITIING Uncoded 04/15/21 13:13 Vital Signs Vital Signs - 24 hr 07/18/24 12:05 Temperature 97.6 F Pulse Rate 93 Respiratory Rate 18 Blood Pressure 123/86 Pulse Oximetry 98 Oxygen Delivery Room Air Exam Const: General: comfortable and no acute distress HENMT: Face/Nose/Sinus: Normal nares present Eyes: General: appearance normal, both eyes and all related structures Neck: Neck: no JVD Resp: Auscultation: clear to auscultation bilaterally Cardio: Rate: regular rate Rhythm: regular rhythm GI: Inspection: non-distended GI Palp: Yes Soft to palpation Skin: General skin exam: normal color Neuro: General: gait normal Speech: normal speech Extrem: General: normal to inspection Psych: Mental Status: mental status grossly normal Assessment and Plan Assessment and plan (1) Colon cancer screening: Code(s): Z12.11 - Encounter for screening for malignant neoplasm of colon Status: Acute Assessment and Plan: colonoscopy
[2024-07-18 13:37] VITALS: BP 111/72; PULSE 86; RESP 25; O2SAT 98
[2024-07-18 13:47] VITALS: BP 114/82; PULSE 74; RESP 20; O2SAT 97
[2024-07-18 13:57] VITALS: BP 130/83; PULSE 73; RESP 17; O2SAT 98
== END 2024-07-18 14:11 | disposition home or self-care (01) ==
PROVIDERS: Visit Provider Internal Medicine Gastroenterology
PROC: 0DJD8ZZ Inspection of Lower Intestinal Tract, Via Natural or Artificial Opening Endoscopic (ICD-10-PCS; CPT 45378; principal; 2024-07-18 13:00)
DX: Z12.11 Encounter for screening for malignant neoplasm of colon (principal); K62.1 Rectal polyp; K64.8 Other hemorrhoids; F12.90 Cannabis use, unspecified, uncomplicated; E66.9 Obesity, unspecified; Z68.30 Body mass index [BMI] 30.0-30.9, adult; Z79.84 Long term (current) use of oral hypoglycemic drugs
CPT/HCPCS: 45385; 82948; 88305; J2003; J2704; J7120

== ENCOUNTER 2024-11-19 15:00 | Outpatient (CLI) | payer MEDICARE, SELFPAY ==
--- NOTE | ~2024-11-19 | XR_ITS ---
Clinical history:Jaw pain EXAM:X-ray minimum 4 views TECHNIQUE:4 images of the mandible were obtained. Comparisons:None available FINDINGS: Bone mineralization is within normal limits. No obvious fracture of the mandible, however, evaluation is limited due to overlapping structures. No obvious sclerotic or destructive bone lesion in the visualized mandible. IMPRESSION: No obvious fracture or bone lesion in the visualized mandible. Evaluation is slightly limited due to overlapping structures. If continued concern, consider a maxillofacial CT for further assessment Reviewed, dictated and finalized at location A. IMPRESSION: No obvious fracture or bone lesion in the visualized mandible. Evaluation is sl ightly limited due to overlapping structures. If continued concern, consider a maxillofacial CT for further assessment
--- NOTE | ~2024-11-19 | XR_ITS ---
[id number] 11/19/2024 16:08 Indication: Jaw pain Procedure: 4 view cervical spine Comparison: No prior studies for comparison. Findings: Vertebral body heights are maintained. No acute fracture or traumatic malalignment. Odontoi d process is unremarkable. There is advanced multilevel uncinate and facet hypertrophy. No prevertebr al soft tissue abnormality. Impression: 1: Moderate cervical spondylosis. Reviewed, dictated and finalized at location A. Impression: 1: Moderate cervical spondylosis.
--- NOTE | ~2024-11-19 | XR_ITS ---
EXAMINATION: XR TMJ BI DATE: 11/19/2024 16:08 INDICATION: Jaw pain TECHNIQUE: Lateral open and closed mouth views of the left and right temporomandibular joints were obtained. COMPARISON: None. FINDINGS: Normal alignment and anterior transitory motion with mild fold thickening at the bilateral temporomandibular joints. Joint spaces appear normal. No fracture. Multiple dental restorations. Mild to moderate facet osteoarthritis in the visualized upper cervical spine. Mastoid air cells appear well-aerated. No air- fluid levels in the mastoid air cells are paranasal sinuses. IMPRESSION: 1. Normal bilateral temporomandibular joints. Reviewed, dictated and finalized at location A.
--- NOTE | ~2024-11-19 | XR_ITS ---
Thoracic spine: Clinical Indication: Back pain AP and lateral views were performed. No fracture is seen. There is normal alignment of the vertebrae. The intervertebral disc spaces appear normal. Paravertebral soft tissues appear normal. Impression: No significant abnormalities noted. Reviewed, dictated and finalized at location . Impression: No significant abnormalities noted.
--- NOTE | ~2024-11-19 | XR_ITS ---
Lumbosacral Spine: AP and lateral views Clinical History: Pain Findings: There is levoscoliosis. The vertebral bodies and posterior elements are intact. There is mild degenerative disc narrowing from L3 through L5. There is moderate to advanced facet arthropathy throughout the lumbar spine.. The sacroiliac joints are normally outlined. Impression: Moderate degenerative spondylosis. Levoscoliosis. Reviewed, dictated and finalized at location . Impression: Moderate degenerative spondylosis. Levoscoliosis.
== END 2024-11-19 15:01 | disposition home or self-care (01) ==
PROVIDERS: PCP Chiropractor
DX: M47.816 Spondylosis without myelopathy or radiculopathy, lumbar region (principal); M41.87 Other forms of scoliosis, lumbosacral region
CPT/HCPCS: 70110; 70330; 72040; 72070; 72100

== ENCOUNTER 2025-02-13 12:57 | Outpatient (CLI) | payer MEDICARE, SELFPAY ==
--- NOTE | ~2025-02-13 | CT_ITS ---
EXAM/PROCEDURE: CT facial bones wo con HISTORY: right sided jaw pain COMPARISON: None available. TECHNIQUE: Precontrast facial bone CT performed. Following the precontrast study, patient was injected with iodinated contrast and postcontrast facial bone CT performed. FINDINGS: PRECONTRAST CT: Evaluation of the oral cavity is limited due to extensive dental hardware and amalgam resulting in extensive beam hardening streak artifact. Apical lucency is present about the second left lower incisor and canine tooth. See image 47 series 601. The second left lower incisor appears to have undergone Root canal. Dental cavities may also be present in the lower incisors. Mild osteoarthritic appearing degenerative changes present in the temporomandibular joints bilaterally. There paranasal, para orbital and calvarial structures appear intact. Nasal septum midline and ostemia complexes are patent. Mastoid air cells and middle ear cavities are also fully aerated. No gross soft tissue defect, abnormal fluid collection or lesion/mass identified. POSTCONTRAST CT: On postcontrast series no abnormal enhancing lesions or masses seen. IMPRESSION: 1. Limited evaluation of the oral cavity, and dentition and adjacent regions as above; small periapical lucency may represent early developing abscess in the lower left incisor. Dental caries may also be present. Correlate with dedicated dental exam. 2. Mild osteoarthritic changes of the temporomandibular joints. 3. No abnormal enhancing lesions or masses seen. Reviewed, dictated and finalized at location A. 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
--- NOTE | ~2025-02-13 | CT_ITS ---
EXAM/PROCEDURE: CT facial bones w con HISTORY: right sided jaw pain COMPARISON: None available. TECHNIQUE: Precontrast facial bone CT performed. Following the precontrast study, patient was injected with iodinated contrast and postcontrast facial bone CT performed. FINDINGS: PRECONTRAST CT: Evaluation of the oral cavity is limited due to extensive dental hardware and amalgam resulting in extensive beam hardening streak artifact. Apical lucency is present about the second left lower incisor and canine tooth. See image 47 series 601. The second left lower incisor appears to have undergone Root canal. Dental cavities may also be present in the lower incisors. Mild osteoarthritic appearing degenerative changes present in the temporomandibular joints bilaterally. There paranasal, para orbital and calvarial structures appear intact. Nasal septum midline and ostemia complexes are patent. Mastoid air cells and middle ear cavities are also fully aerated. No gross soft tissue defect, abnormal fluid collection or lesion/mass identified. POSTCONTRAST CT: On postcontrast series no abnormal enhancing lesions or masses seen. IMPRESSION: 1. Limited evaluation of the oral cavity, and dentition and adjacent regions as above; small periapical lucency may represent early developing abscess in the lower left incisor. Dental caries may also be present. Correlate with dedicated dental exam. 2. Mild osteoarthritic changes of the temporomandibular joints. 3. No abnormal enhancing lesions or masses seen. Reviewed, dictated and finalized at location A. 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
[2025-02-13 13:17] LABS: Estimated Glomerular Filt Rate > 60
== END 2025-02-13 12:58 | disposition home or self-care (01) ==
PROVIDERS: PCP Chiropractor; Visit Provider Nurse Practitioner Family
DX: M26.643 Arthritis of bilateral temporomandibular joint (principal)
CPT/HCPCS: 70486; 70487; 70488; Q9967